=== PATIENT | female | born 1940 | race Caucasian/White ===

== ENCOUNTER 2024-01-04 09:30 | Emergency (ER) | payer MEDICARE ==
[~2024-01-04] VITALS: Ht 167.6 cm; Wt 87.0 kg
[2024-01-04 09:32] VITALS: TEMP 96.9
[2024-01-04] MEDS: albuterol 2.5 MG/3 ML nebule NEB ONE (10:34)
[2024-01-04 10:37] VITALS: PULSE 89; RESP 18; O2SAT 99
[2024-01-04] MEDS: azithromycin 250mg tablet PO ONE (10:38)
[2024-01-04] MEDS: predniSONE 20 mg tablet PO ONE (10:38)
[2024-01-04] MEDS ORDERED: PRED20TA PO (10:41)
[2024-01-04] MEDS ORDERED: AZIT-164 PO (10:41)
[2024-01-04 10:47] VITALS: PULSE 81; RESP 16; O2SAT 99
[2024-01-04 10:55] VITALS: BP 150/65; PULSE 93; RESP 16; O2SAT 98
== END 2024-01-04 10:56 | disposition home or self-care (01) ==
LOC: ER 09:30
DX: J22 Unspecified acute lower respiratory infection (principal); J44.89 Other specified chronic obstructive pulmonary disease
CPT/HCPCS: 94640; 99283; J7512; 94760

== ENCOUNTER 2025-01-22 13:37 | Inpatient (IN) | payer MEDICARE, OTHER ==
[~2025-01-22] VITALS: Ht 170.2 cm; Wt 88.5 kg
--- NOTE | 2025-01-22 14:01 | ELECTROCARDIOGRAPH REPORT ---
[facility] Test Date: 2025-01-22 Test Time: 14:00:04 Pat Name: BLUE GRUBBS Department: [facility] Patient ID: [facility]-[id number] Room: ORTHO [facility] Gender: F Curriculum Writer: : 1940 Requested By: ALINA MENA Order Number: [id number] Reading MD: Dr. SUMMER Miranda Measurements Intervals [place] Rate: 109 P: 53 IN: 194 QRS: 11 QRSD: 124 T: 55 QT: 344 QTc: 464 Interpretive Statements Sinus tachycardia Ventricular premature complex Right bundle branch block Electronically Signed On 01-23-2025 13:08:[address] SUMMER Miranda Please click the below link to view image of tracing.
--- NOTE | 2025-01-22 14:08 | RADIOLOGY REPORT ---
CLINICAL INFORMATION: Chest pain. TECHNIQUE: Single AP portable chest radiograph was obtained. COMPARISON: None FINDINGS: Lungs: Mild atelectasis in the lung bases. There is increased density in the right lung apex, may be due to scarring, although other etiologies, including consolidation not excluded. Cardiac: Heart size is within normal limits. Pulmonary vasculature: Unremarkable. Mediastinum/violette: Left internal jugular port catheter distal tip reaches the mid SVC. Bones: No acute osseous abnormality identified. Other: No other significant findings. IMPRESSION: Increased density in the right lung apex, may be due to scarring. Other etiologies, including consolidation not excluded. Correlate with clinical findings. If clinically indicated, CT could be obtained.
[2025-01-22 14:26] LABS: MEAN PLATELET VOLUME 8.8 FL (7.4-10.4); RED CELL DISTRIBUTION WIDTH 13.5 % (11.5-14.5)
[2025-01-22 15:01] LABS: CREATININE 0.76 MG/DL (0.40-0.90); PRO BRAIN NATRIURETIC PEPTIDE 35 PG/ML (0-450); TOTAL CARBON DIOXIDE 26.6 MMOL/L (24-32); eCRCL 56 ML/MIN; eGFR 73 ML/MIN
--- NOTE | 2025-01-22 17:02 | Physician Documentation ---
History of Present Illness ~ Chief Complaint: Shortness of Breath Stated Complaint: SOB ASTHMA COPD Time Seen by MD: 16:44 Primary Medical Doctor: RICARDO Mode of Arrival: POV HPI The patient is an 84-year-old female with a history of COPD, hypertension and hyperlipidemia. Her COPD has gotten worse over the past six days. Currently, she is not able to walk more than a few steps without gasping for air. She is not on home oxygen though she does use a CPAP machine at night with room air. She has been using inhalers and her nebulizer without benefit. Medication Reconciliation Allergies: Coded Allergies: No Known Allergies (Unverified , 01/22/25) Scheduled Budesonide/Glycopyr/Formoterol (Breztri Aerosphere Inhaler), 2 PUFFS INH Q12H, (Reported) Losartan Potassium (Losartan Potassium), 3 TAB PO HS, (Reported) Simvastatin* (Zocor*), 1 TAB PO HS, (Reported) Scheduled PRN Albuterol Sulfate Nebs* (Proventil Nebs*), 1 VIAL NEB Q6H PRN for SOB or wheezing, (Reported) Review of Systems ROS Constitutional: Denies chills, fatigue, fever, weight gain or weight loss. HEENT: Denies hearing loss, sinus pressure or visual changes. Respiratory: Cough, wheezing, shortness of breath Cardiovascular: Denies chest pain, pain while walking (claudication), edema or palpitations. Gastrointestinal: Denies abdominal pain, blood in stool, constipation, diarrhea, heartburn, loss of appetite, nausea or vomiting. Genitourinary: Denies painful urination (dysuria), excessive amount of urine (polyuria) or urinary frequency. Metabolic/Endocrine: Denies cold intolerance, heat intolerance, excessive thirst (polydipsia) or excessive hunger (polyphagia). Neurological: Denies dizziness, extremity numbness, extremity weakness, headaches, seizures or tremors. Psychiatric: Denies anxiety or depression. Integumentary: Denies breast discharge, breast lump, hives, mole change(s), rash or skin lesion. Musculoskeletal: Denies back pain, joint pain, joint swelling or neck pain. Hematologic: Denies easily bleeding, easily bruises, lymphedema or issues with blood clots. Immunologic: Denies food allergies or seasonal allergies. Physical Exam Vital Signs: Temperature: 97.6, Source: Oral, Heart Rate: 88, Respiratory Rate: 16, BP: 148/73, Pulse Oximetry: 94, Weight: 88.500 Oxygen Flow Rate: 0 Physical Exam Physical Exam Vitals and nursing note reviewed. Constitutional: General: Patient is awake, alert, oriented x 4 in no acute distress and well appearing. Speech is clear and lucid. Appearance: Normal appearance. Patient is not ill-appearing, toxic-appearing or diaphoretic. HENT: Head: Normocephalic and atraumatic. Mouth/Throat: Mouth: Mucous membranes are moist. Pharynx: Oropharynx is clear. Eyes: General: No scleral icterus. Extraocular Movements: Extraocular movements intact. Pupils: Pupils are equal, round, and reactive to light. Neck: Supple, no Kernig or Brudzinski sign. Cardiovascular: Rate and Rhythm: Normal rate and regular rhythm. Heart sounds: No murmur heard. Pulmonary: Effort: No respiratory distress. Breath sounds: Wheezing bilaterally. Abdominal: General: There is no distension. Palpations: There is no fluid wave, hepatomegaly or mass. Tenderness: There is no abdominal tenderness. There is no guarding. Musculoskeletal: General: No swelling or deformity. Skin: Coloration: Skin is not jaundiced. Findings: No erythema or rash. Neurological: Mental Status: Patient is alert. Progress Results/Orders Results/Orders Orders - ALINA EMNA MD Chest,Single View (01/22/25 13:48) Monitor (01/22/25 13:48) Saline Lock (01/22/25 13:48) Oxygen (01/22/25 13:48) Magnesium Sulf-Water 2g/50ml (Magnesium (01/22/25 17:00) Covid19 Binax Poc Result Entry (01/22/25 16:58) Page Hospitalist (01/22/25 17:08) Completed Orders - ALINA MENA MD Chest,Single View (01/22/25 13:48) Cbc/Diff (01/22/25 13:48) BMP (01/22/25 13:48) PBNP (01/22/25 13:48) Electrocardiogram (01/22/25 13:48) Hs Troponin I W Calculations (01/22/25 13:48) Hs Troponin I W Calculations (01/22/25 15:48) Ipratropium/Albuterol Nebule (Ipratrop/A (01/22/25 16:58) Methylprednisolone Sod Succ (Solumedrol (01/22/25 17:00) Doxycycline 100mg/Ns 100ml Pb (Vibramyci (01/22/25 16:58) Hgb A1c (01/22/25 14:17) Medications Received in ER Medications (Trade) Dose Ordered Sig/Sonny Route PRN Reason Start Time Stop Time Status Last Admin Dose Admin (ipratrop/ albuterol 0.5-3(2.5) MG/3ml nebule) 3 ml ONCE STAT NEB 01/22/25 16:58 01/22/25 17:04 DC 01/22/25 17:26 3 ML (SoluMEDROL 125mg inj) 125 mg ONCE ONCE IV 01/22/25 17:00 01/22/25 17:04 DC 01/22/25 17:29 125 MG Magnesium Sulfate 50 ml @ 25 mls/hr ONCE ONCE IV 01/22/25 17:00 01/22/25 18:59 01/22/25 17:26 25 MLS/HR Doxycycline Hyclate 100 ml @ 100 mls/hr ONCE STAT IV 01/22/25 16:58 01/22/25 17:57 DC 01/22/25 17:49 100 MLS/HR Vital Signs 01/22/25 01/22/25 01/22/25 01/22/25 13:44 14:27 14:50 14:58 Temp 97.6 Pulse 87 98 90 Resp 30 24 26 B/P (MAP) 152/81 141/73 (95) 146/76 (99) Pulse Ox 97 95 92 O2 Flow Rate 0 0 0 01/22/25 01/22/25 01/22/25 01/22/25 15:49 16:59 17:28 17:34 Pulse 88 91 97 92 Resp 16 20 20 B/P (MAP) 148/73 (98) 142/75 (97) Pulse Ox 94 94 94 100 O2 Delivery Room Air* Room Air* O2 Flow Rate 0 0 0 FiO2 21 21 Laboratory Tests Test 01/22/25 14:17 01/22/25 16:05 White Blood Count 7.4 Red Blood Count 3.95 L Hemoglobin 11.8 L Hematocrit 34.6 L Mean Corpuscular Volume 87.6 Mean Corpuscular Hemoglobin 29.8 Mean Corpuscular Hemoglobin Concent 34.0 Red Cell Distribution Width 13.5 Platelet Count 209 Mean Platelet Volume 8.8 Neutrophils (%) (Auto) 78.2 H Lymphocytes (%) (Auto) 7.7 L Monocytes (%) (Auto) 10.4 Eosinophils (%) (Auto) 3.5 Basophils (%) (Auto) 0.2 Neutrophils # (Auto) 5.8 Lymphocytes # (Auto) 0.6 L Monocytes # (Auto) 0.8 Eosinophils # (Auto) 0.3 Basophils # (Auto) 0.0 CBC Comment Sodium Level 139 Potassium Level 4.3 Chloride Level 103 Carbon Dioxide Level 26.6 Anion Gap 9 Blood Urea Nitrogen 18 Creatinine 0.76 Estimated GFR/1.73 m2 73 BUN/Creatinine Ratio 23.7 H Glucose Level 108 H Hemoglobin A1c 5.3 Calcium Level 9.7 Troponin I High Sensitivity 5 6 Pro-B-Type Natriuretic Peptide 35 Albumin 4.1 Chemistry Comments Troponin I High Sens Percent Delta 20 Troponin I Hi Sens Absolute Change 1 Medical Decision Making Additional information obtaine: family Findings Patient arrives with a six day progression of wheezing and shortness of breath with a history of COPD. Chest x-ray shows a hyperdense area in the right apex. She denies chills or fever. I am starting her on DuoNeb, steroids, magnesium and antibiotics. Heart Score: 4 Differential Dx:Considerations: Include: bronchitis, CHF, COPD, hyperventilation, panic attack, upper resp. infection; Unlikely: anxiety, asthma, cardiogenic shock, dysrhythmia, hypertension, accelerated, hypertension, essential, hypertension, malignant, hyponatremia, myocardial infarction, p neumonia, pneumonitis, pneumothorax, PSVT, pulmonary embolism, respiratory distress, respiratory failure, sinusitis, other Departure Disposition: ADMITTED INPATIENT Impression: Primary Impression: Acute exacerbation of chronic obstructive airways disease Condition: Fair Referrals: NO PRIMARY CARE PROVIDER (PCP) Signature Scribe Signature: . Attestation: ALINA TANG MD Jan 22, 2025 17:02
[2025-01-22] MEDS ORDERED: magnesium Cl slow-release 64mg tablet PO PRN (17:20)
[2025-01-22] MEDS ORDERED: albuterol 2.5 MG/3 ML nebule NEB PRN (17:20)
[2025-01-22] MEDS ORDERED: HYDROcodone/acetaminophen 5mg/325mg tablet PO PRN (17:20)
[2025-01-22] MEDS ORDERED: magnesium sulf-water 2g/50mL 50 ML IV PRN (17:20)
[2025-01-22] MEDS ORDERED: morphine 4 MG/ML inj SYRINge IV PRN ×2 (17:20)
[2025-01-22] MEDS ORDERED: ondansetron/PF 4mg/2ml inj IV PRN (17:20)
[2025-01-22] MEDS ORDERED: potassium Cl 20 mEq SR tablet PO PRN ×2 (17:20)
[2025-01-22] MEDS ORDERED: magnesium hydroxide 30ml (MOM) UD suspension PO PRN (17:20)
[2025-01-22] MEDS ORDERED: potassium Cl 40MEQ/1/2NS 520ml 520 ML IV PRN (17:20)
[2025-01-22] MEDS ORDERED: magnesium sulf-water 4G/100mL 100 ML IV PRN (17:20)
[2025-01-22] MEDS ORDERED: mag hydrox/Alum hydrox/simeth 30ml oral suspension PO PRN (17:20)
[2025-01-22] MEDS ORDERED: HYDROcodone/acetaminophen 10/325mg tab PO PRN (17:20)
[2025-01-22] MEDS: ipratropium/albuterol 3ml nebule NEB STA (17:26)
[2025-01-22] MEDS: magnesium sulf-water 2g/50mL 50 ML IV ONE (17:26)
[2025-01-22 17:28] VITALS: PULSE 97; RESP 20; O2SAT 94
[2025-01-22 17:34] VITALS: PULSE 92; RESP 20; O2SAT 100
[2025-01-22] MEDS: doxycycline 100mg/NS 100mL PB 100 ML IV STA (17:49)
--- NOTE | 2025-01-22 17:57 | HISTORY AND PHYSICAL-Residence ---
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 Patient reports that symptoms have been progressively worsening over the last three weeks, with worsening of her expectoration over the last 4-5 days. She has been using her inhaler Breztri twice a day, albuterol 3-4 times a day over the last one week along with the nebulizer 3 times a day. Despite the above, her symptoms have failed to improve. She complains of worsening shortness of breath even with a few steps, additionally complains of orthopnea and PND. Denies fevers, chills, nasal congestion or recent sick contacts. This is her 1st lifetime hospitalization, and 1st ER visit this year. She has had 2 ER visits last year. Follows Dr. Cooper for pulmonology, Dr. FERNÁNDEZ for PCP. 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 She received chemotherapy and radiotherapy to the lung as well as to the brain. She was diagnosed in August 2021 and completed all of the treatment with in six months. She used follow up every four months which has now been increased to every six months where she obtains a CT chest as well as a PET scan. Reports that she has not upcoming CT chest and PET scan next week. Patient also sleep apnea and does not use her CPAP regularly. She currently denies any loss of weight, loss of appetite or hematemesis. 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 Denies any other tobacco products. Occasional alcohol use. Denies any other illicit drug abuse Lives at home with the . Functionally independent ROS ROS As stated above in the HPI, otherwise all systems are reviewed and negative. Exam Vitals: Vital Signs Date Time Temp Pulse Resp B/P (MAP) Pulse Ox O2 Delivery O2 Flow Rate FiO2 01/22/25 17:45 103 17 155/99 (117) 94 01/22/25 17:34 Room Air* 0 21 01/22/25 13:44 97.6 General: General: Awake and Alert, no acute distress. HEENT: Conjunctiva pink, Sclera clear, Mucus Membranes moist. Resp: Tachypnea, diffuse expiratory wheezing in bilateral lung wilson Heart: Unable to auscultate due to diffuse wheezing Abdomen: Soft and non tender no organomegaly Extremities: No cyanosis,clubbing or edema. Skin: Warm and Dry. No rashes Diagnostic Data Last Recorded Lab Results: 01/22/25 1417 01/22/25 1417 Additional Plan Acute on chronic COPD exacerbation: Acute bronchitis EKG reveals P-mitrale and right bundle branch block Received one dose IV Solu-Medrol 125 mg followed by duo nebs x2. Received one dose IV doxycycline in the ER Duo nebs q.4 hours scheduled and albuterol q.2h PRN. Budesonide 0.5 mg b.i.d. Azithromycin daily for three days, Solu-Medrol 40 mg daily, Mucinex 600 mg b.i.d. In view of orthopnea and PND, one dose Lasix. ProBNP normal. Mildly increased pulmonary vascular congestion. Strict input and output monitoring Home medications include Breztri BID and albuterol PRN. 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 Status post chemotherapy and radiotherapy; in remission Follows with [facility] and Dr Cooper Next follow up for CT chest and PET scan in 10 days outpatient Hypertension: Has been on a stable dose and category of ARB for a long time Continue home medication of losartan 75 mg HS Hyperlipidemia: Follow lipid panel Continue home medication of rosuvastatin 20 mg daily Sleep apnea: Patient noncompliant with her CPAP Not a chronic CO2 retainer Advised to use overnight CPAP Continue monitoring Lines: PIV Code status: Full code DVT prophylaxis: Lovenox Diet: Heart healthy Discussed for 16-30 minutes regarding the code status of the patient and the patient would wish to be full code. Josef Galdamez PGY3, Internal medicine resident Patient was seen, examined and discussed with the attending MD, Dr. Coats Date of Service: Jan 22, 2025 Billing Provider: IVANA COATS MD Common Visit Codes: [id number] INP/OBS CARE (HIGH) Secondary Visit Codes: 18548-[id number] CARE PLAN 30 MINUTES JOSEF GALDAMEZ, RES Jan 22, 2025 17:57 IVANA COATS MD Jan 24, 2025 07:04
[2025-01-22] MEDS ORDERED: BUDE10.7 INH (18:00)
[2025-01-22] MEDS ORDERED: SIMV-42 PO (18:00)
[2025-01-22] MEDS ORDERED: ALB0.5UD NEB (18:00)
[2025-01-22] MEDS ORDERED: LOSA25TA41 PO (18:00)
[2025-01-22 18:25] LABS: INFLUENZA TYPE A ANTIGEN RAPID NEGATIVE (Negative); INFLUENZA TYPE B ANTIGEN RAPID NEGATIVE (Negative)
[2025-01-22] MEDS: ipratropium/albuterol 3ml nebule NEB SCH (19:47)
[2025-01-22 19:50] VITALS: PULSE 94; RESP 16; O2SAT 92
[2025-01-22 19:55] VITALS: PULSE 96; RESP 16
[2025-01-22] MEDS: guaiFENesin ER 600mg tablet PO SCH (21:28)
[2025-01-22] MEDS: K and/or MAG REPLACEMENT MC SCH (21:30)
[2025-01-22] MEDS: docusate sod 100mg capsule PO SCH (21:30)
[2025-01-22 22:00] VITALS: BP 148/75; PULSE 93; RESP 21; TEMP 97
[2025-01-23] VITALS (13 sets, daily range): BP systolic 124–155; BP diastolic 57–80; PULSE 87–98; RESP 14–20; TEMP 97.1–98.2; O2SAT 94–97
[2025-01-23 06:12] LABS: MEAN PLATELET VOLUME 9.8 FL (7.4-10.4); RED CELL DISTRIBUTION WIDTH 13.1 % (11.5-14.5)
[2025-01-23 06:26] LABS: CHOL/HDL RATIO 2.7 (0.00-4.99); CREATININE 0.84 MG/DL (0.40-0.90); LDL CHOLESTEROL 77 MG/DL (50-100); TOTAL CARBON DIOXIDE 27.3 MMOL/L (24-32); eCRCL 50 ML/MIN; eGFR 65 ML/MIN
[2025-01-23] MEDS: azithromycin/NS 500mg/250ml 250 ML IV SCH (07:58)
[2025-01-23] MEDS: methylPREDNISolone sod succ/PF 40mg inj. IV SCH (07:58)
[2025-01-23] MEDS: enoxaparin 40mg/0.4ml syringe SUBCUT SCH (08:01)
[2025-01-23] MEDS: budesonide 0.5mg/2ml UD nebule IH SCH (08:04)
--- NOTE | 2025-01-23 13:58 | CARDIOLOGY REPORT ---
APPROVED REPORT EXAM: Comprehensive 2D, Doppler, and color-flow Echocardiogram. Patient Location: [facility] Heart Rate: 91 bpm Rhythm: NSR Indications CONGESTIVE HEART FAILURE COPD HTN SOB STRATEGIC DEBRIEFING SPECIALIST: None PRIOR ECHOCARDIOGRAM: None. 2D Dimensions RVDd 3.2 cm IVSd 0.9 (0.7-1.1cm) LVDd 5.4 cm PWd 0.9 (0.7-1.1cm) IVSs 1.5 (0.8-1.2cm) LVDs 3.6 (2.5-4.0cm) PWs 1.3 (0.8-1.2cm) LVOT Diameter 1.96 (1.8-2.4cm) LVEF(%) 62.3 (>50%) FS (%) 33.9 % SV 88.4 ml CO 12.1 L/min M-Mode Dimensions Left Atrium(MM) 3.46 (2.5-4.0cm) Aortic Root 3.30 (2.2-3.7cm) Aortic Cusp Exc 1.57 (1.5-2.0cm) Aortic Valve AoV Peak Luis. 166.4 cm/s AoV VTI 27.2 cm AO Peak GR. 11.1 mmHg AO Mean GR. 5 mmHg LVOT VTI 28.75 cm LVOT Peak Luis. 167.8 cm/s JASON (VTI) 3.19 cm2 AV DI 1.06 % Mitral Valve MV E Velocity 114.0 cm/s MV Peak Gr. 8 mmHg MV PHT 36 ms MVA (PHT) 6.11 cm2 MV VMax 140.0 cm/s LEFT VENTRICLE Normal LV size and wall thickness. Overall systolic function is normal. Overall LVEF is 60-65%. RIGHT VENTRICLE RV is normal size and function. ATRIA The left atrium size is normal. The right atrium size is normal. AORTIC VALVE Trileaflet AV appears mildly sclerotic without stenosis. No insufficiency by color and spectral flow Doppler. MITRAL VALVE Mild mitral annular calcification without stenosis. Mild insufficiency. TRICUSPID VALVE TV appears structurally normal with no regurgitation by color and spectral flow Doppler. PULMONIC VALVE Pulmonic valve is not well visualized. GREAT VESSELS The aortic root is normal in size. The IVC is normal in size and collapses >50% with inspiration. PERICARDIUM Normal pericardium. No effusion. Other Information Study Quality: Adequate Conclusion Overall LVEF is 60-65%. Normal LV size and wall thickness. Overall systolic function is normal. RV is normal size and function. Trileaflet AV appears mildly sclerotic without stenosis. No insufficiency by color and spectral flow Doppler. Mild mitral annular calcification without stenosis. Mild insufficiency. TV appears structurally normal with no regurgitation by color and spectral flow Doppler. Normal pericardium. No effusion.
--- NOTE | 2025-01-23 16:45 | PROGRESS NOTE- Residence ---
Progress Note - Resident Providers to CC Resident Creating Document: CHELSEY DEVINE, OLGA LIDIA ~ Antibiotic Timeout Antibiotic Ordered?: No Subjective Patient was seen and examined at the bedside today. Reports she is feeling much better compared to yesterday. Family was at the bedside, reports that the patient was short of breadth on walking to bathroom. She uses CPAP at night. Objective Vital Signs Date Time Temp Pulse Resp B/P (MAP) Pulse Ox O2 Delivery O2 Flow Rate FiO2 01/23/25 11:59 90 18 Room Air 0.0 01/23/25 11:54 96 21 01/23/25 10:28 98.0 139/68 (91) Result Diagram: 01/23/2543001/23/25430 General: Awake and Alert, no acute distress. HEENT: Conjunctiva pink, Sclera clear, Mucus Membranes moist. Resp: Tachypnea, diffuse expiratory wheezing in bilateral lung wilson which improved Heart: Regular rate and rhythm, no murmur Abdomen: Soft and non tender no organomegaly, normal bowel sounds Extremities: No cyanosis,clubbing or edema. Neurological : No focal neurological deficit Skin: Warm and Dry. No rashes Plan Plan Acute on chronic COPD exacerbation: Acute bronchitis EKG reveals P-mitrale and right bundle branch block Received one dose IV Solu-Medrol 125 mg followed by duo nebs x2. Received one dose IV doxycycline in the ER Duo nebs q.4 hours scheduled and albuterol q.2h PRN. Budesonide 0.5 mg b.i.d. Azithromycin daily for three days, Solu-Medrol 40 mg daily, Mucinex 600 mg b.i.d. In view of orthopnea and PND, one dose Lasix. ProBNP normal. Mildly increased pulmonary vascular congestion. Strict input and output monitoring Home medications include Breztri BID and albuterol PRN. She has been on a stable medication for a long time until over the last three weeks with increasing requirement of albuterol Continue RT eval and treat 01/23/2025 Continuing IV Solu-Medrol 40 mg, home inhalers, DuoNebs p.r.n. 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 Status post chemotherapy and radiotherapy; in remission Follows with [facility] and Dr Cooper Next follow up for CT chest and PET scan in 10 days outpatient Hypertension: Has been on a stable dose and category of ARB for a long time Continue home medication of losartan 75 mg HS Hyperlipidemia: Follow lipid panel Continue home medication of rosuvastatin 20 mg daily Sleep apnea: Patient noncompliant with her CPAP Not a chronic CO2 retainer Advised to use overnight CPAP Continue monitoring Lines: PIV Code status: Full code DVT prophylaxis: Lovenox Diet: Heart healthy Disposition: Discharge tomorrow to home if patient continues to improve Chelsey Devine M.D PGY2 Date of Service: Jan 23, 2025 Billing Provider: IVANA COATS MD Common Visit Codes: [id number] INP/OBS CARE(HIGH) CHELSEY DEVINE, RES Jan 23, 2025 16:44 IVANA COATS MD Jan 24, 2025 07:05
[2025-01-23] MEDS ORDERED: GLYCOPYR INH SCH (20:00)
[2025-01-23] MEDS ORDERED: BUDESONIDE INH SCH (20:00)
[2025-01-23] MEDS ORDERED: FORMOTEROL INH SCH (20:00)
[2025-01-23] MEDS ORDERED: [UNRECOGNIZED DRUG - OTHER] INH SCH (20:00)
[2025-01-24] VITALS (17 sets, daily range): BP systolic 129–163; BP diastolic 63–78; PULSE 77–111; RESP 16–22; TEMP 96.3–97.4; O2SAT 91–100
[2025-01-24 05:41] LABS: MEAN PLATELET VOLUME 9.2 FL (7.4-10.4); RED CELL DISTRIBUTION WIDTH 13.7 % (11.5-14.5)
[2025-01-24 06:02] LABS: CREATININE 0.89 MG/DL (0.40-0.90); TOTAL CARBON DIOXIDE 30.1 MMOL/L (24-32); eCRCL 47 ML/MIN; eGFR 61 ML/MIN
[2025-01-24 06:06] LABS: EOSINOPHILS % (MANUAL) 2.0 % (0-6); LYMPHOCYTES % (MANUAL) 15.0 % (21-51); MONOCYTES % (MANUAL) 13.0 % (2-12); NEUTROPHILS % (MANUAL) 70.0 % (42-75)
[2025-01-24 06:07] LABS: PLATELET ESTIMATE NORMAL
[2025-01-24] MEDS: guaiFENesin ER 600mg tablet PO ONE (11:15)
--- NOTE | 2025-01-24 12:35 | RADIOLOGY REPORT ---
CTA Chest with intravenous contrast INDICATION: Worsening shortenss of breath COMPARISON: DI CHEST,SINGLE VIEW on DOS: 01/22/25 TECHNIQUE: Multidetector spiral CTA of the chest was performed of the chest with intravenous contrast. PULMONARY ANGIOGRAPHY PROTOCOL was utilized using a bolus- tracking technique centered on the main pulmonary artery. Axial, coronal and sagittal multiplanar and MIP reformats were performed. Radiation Dose : 1. Chest: CTDI volume is 22.58 mGy. Dose-length product is 862.65 mGy*cm The dose indicators for CT are the volume Computed Tomography (CT) Dose Index (CTDIvol) and the Dose Length Product (DLP), and are measured in units of mGy and mGy-cm, respectively. These indicators are not patient dose, but values generated from the CT scanner acquisition factors. The report includes radiation exposure data for exposures received during this examination. Contrast: 100 cc Omnipaque 350. Findings: Pulmonary artery: No pulmonary embolism Lower neck: Normal thyroid. Lungs: Central airways patent. Dense band of scarring with volume loss in the right upper lobe apex posteriorly abutting the major fissure. Airways appear occluded in this region. Background of mild diffuse bronchial wall thickening. Mild centrilobular emphysema. Heart/Vascular Structures: Normal heart size. No pericardial effusion. Lymph Nodes: No adenopathy Pleura: No pleural effusion or significant pneumothorax. Musculoskeletal: No acute osseous abnormality. Soft tissues: Normal. Upper abdomen: Limited portions of the upper abdomen are unremarkable. IMPRESSION: No pulmonary embolus. Band of presumed scarring within the right upper lobe apex. Suggest a short- term follow-up CT in 2-3 months for reassessment. Emphysema and chronic airways disease.
--- NOTE | 2025-01-24 15:50 | PROGRESS NOTE- Residence ---
Progress Note - Resident Providers to CC Resident Creating Document: JOSEF GALDAMEZ, OLGA LIDIA ~ Central Line/PICC still needed: No Chau-Non Protocol Chau Indications Met/Not Met: F/C Indications Not Met Antibiotic Timeout Antibiotic Ordered?: Yes Subjective Patient continues to have shortness of breath today, difficulty completing her statement without getting short of breath. Continues to have significant amount of expectoration. Denies any episodes of fevers or chills. Objective Vital Signs Date Time Temp Pulse Resp B/P (MAP) Pulse Ox O2 Delivery O2 Flow Rate FiO2 01/24/25 14:29 149/71 (97) 01/24/25 10:00 97.4 111 20 92 Room Air 01/24/25 08:06 0.0 01/24/25 07:53 21 Result Diagram: 01/24/25 0517 01/24/25516 General: Awake and Alert, short of breath HEENT: Conjunctiva pale, Sclera clear, Mucus Membranes moist. Resp: Right-sided wheezing greater than left-sided wheezing Heart: Regular Rate and rhythm, normal S1 and S2 without murmur, rub or gallop. Abdomen: Soft and non tender no organomegaly Extremities: No cyanosis,clubbing or edema. Skin: Warm and Dry. 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 She presents to the hospital with complaints of worsening shortness of breath over the last three weeks with increasing difficulty in ambulating. She is currently being managed for an acute on chronic COPD exacerbation for both emphysema and possible bronchitis. Plan Plan Acute on chronic COPD exacerbation: Acute bronchitis CTA chest reveals occluded right upper lobe airways with surrounding band of scarring, mild diffuse bronchial wall thickening and centrilobular mild emphysema Continue IV azithromycin for one more day until 01/25/2025 Duo nebs q.4 scheduled and q.2h albuterol PRN. CPAP at nighttime Increase IV Solu-Medrol dosage to 60 mg Q8h Due to worsening ongoing productive cough, increased Mucinex to 1200 mg b.i.d. Blood eosinophil count 300 cells/microL; continue ICS with budesonide /Continue Lasix 20 mg daily; strict input and output monitoring. 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 Status post chemotherapy and radiotherapy; in remission CTA chest reveals dense band of scarring in the right upper lobe with occluded airways; no new lesions noted Probable minimal improvement of acute COPD exacerbation likely secondary to the occluded airway Reached out to Dr Cooper to compare findings of the last CT Hypertension: Has been on a stable dose and category of ARB for a long time Continue home medication of losartan 75 mg HS Hyperlipidemia: Follow lipid panel Continue home medication of rosuvastatin 20 mg daily Sleep apnea: Patient noncompliant with her CPAP Not a chronic CO2 retainer Advised to continue using her overnight CPAP in the hospital as well Lines: PIV Code status: Full code DVT prophylaxis: Lovenox Diet: Heart healthy Josef Galdamez PGY3, Internal medicine resident Patient was seen, examined and discussed with the attending MD, Dr. Coats Date of Service: Jan 24, 2025 Billing Provider: IVANA COATS MD Common Visit Codes: [id number] INP/OBS CARE(HIGH) JOSEF GALDAMEZ, RES Jan 24, 2025 15:50 IVANA COATS MD Jan 25, 2025 07:59
[2025-01-24] MEDS: methylPREDNISolone sod succ/PF 40mg inj. IV SCH (16:25)
[2025-01-24] MEDS: guaiFENesin ER 600mg tablet PO SCH (19:35)
[2025-01-25] VITALS (7 sets, daily range): BP systolic 153; BP diastolic 75; PULSE 70–95; RESP 16–20; TEMP 97.7–97.8; O2SAT 92–95
[2025-01-25 04:47] LABS: MEAN PLATELET VOLUME 9.3 FL (7.4-10.4); RED CELL DISTRIBUTION WIDTH 13.2 % (11.5-14.5)
[2025-01-25 04:55] LABS: CREATININE 0.90 MG/DL (0.40-0.90); TOTAL CARBON DIOXIDE 28.6 MMOL/L (24-32); eCRCL 47 ML/MIN; eGFR 60 ML/MIN
[2025-01-25] MEDS ORDERED: GUAI600T45 PO (12:20)
[2025-01-25] MEDS ORDERED: FURO20TA4 PO (12:20)
[2025-01-25] MEDS ORDERED: AMOX-580 PO (12:20)
[2025-01-25] MEDS ORDERED: IPRA3AMP31 IH (12:20)
[2025-01-25] MEDS ORDERED: PRED10TA23 PO (12:20)
--- NOTE | 2025-01-25 15:47 | DISCHARGE SUMMARY-Residence ---
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, status post chemotherapy and radiotherapy Hypertension, hyperlipidemia, sleep apnea Operations\Procedures: None Consultants: None Complications: None Condition on DC: Stable for transfer New Medications: Amox Tr/Potassium Clavulanate 875/125 MG (Augmentin 875/125 MG) 875 Mg-125 Mg Tablet 1 TAB PO BID for 7 Days, #14 TAB Furosemide (Furosemide) 20 Mg Tablet 1 TAB PO DAILY for 7 Days, #7 TAB 0 Refills Ipratropium/Albuterol Sulfate (Duoneb 2.5-0.5 Mg/3 Ml Soln) 0.5 Mg-3 Mg (2.5 Mg Base)/3 Ml Ampul.neb 3 ML IH QID for 30 Days, #360 ML Use it as a scheduled dose four times a day for atleast the next 7 days or until you see improvement Prednisone (Prednisone) 10 Mg Tablet 0 PO DAILY, #42 TAB Take 4 tabs daily x4 days, then 3 daily x4 days 2 daily x4 days 1 daily x4 days 1/2 daily x4 days then STOP Guaifenesin (Mucinex) 600 Mg Tablet.sa 1200 MG PO Q12H for 7 Days, #14 TAB.SR Continued Medications: Albuterol Sulfate Nebs* (Proventil Nebs*) 2.5 Mg/0.5 Ml Vial.neb 1 VIAL NEB Q6H PRN for SOB or wheezing for 30 Days, #60 ML Budesonide/Glycopyr/Formoterol (Breztri Aerosphere Inhaler) 160 Mcg-9 Mcg-4.8 Mcg/Actuation Hfa.aer.ad 2 PUFFS INH Q12H for 30 Days, #10.7 GM 0 Refills Losartan Potassium (Losartan Potassium) 25 Mg Tablet 3 TAB PO HS for 30 Days, #30 TAB 0 Refills Simvastatin* (Zocor*) 20 Mg Tablet 1 TAB PO HS for 30 Days, #30 TAB Discharge Summary: This is a 84-year-old female patient with a past medical history of asthma, COPD, hypertension, hyperlipidemia and right upper lobe small-cell carcinoma of the lung diagnosed three years ago with metastasis to the brain and currently in remission. He presents to the hospital with complaints of shortness of breath over the last three weeks with increasing difficulty in completing sentences or ambulating. She was admitted the hospital for further management of her COPD exacerbation inclusive of both bronchitis and emphysema. Her peripheral blood eosinophil count was 300 cells per micro L. She was treated with IV steroids, duo nebs q.4 hours scheduled and q.2h albuterol PRN. Inhalation budesonide was also given twice a day. Mucinex was given for thickened expectoration. She was also managed with IV Zithromax for acute bronchitis. Her chest x-ray revealed increased pulmonary vascular congestion due to which Lasix 20 mg was given and the patient was monitored for strict input and output. As the patient had no significant improvement on day three of hospitalization, we performed a CTA chest to rule out alternative causes of a COPD exacerbation. On the CTA chest, there was evidence of right upper lobe scarring consistent with a prior CTs but additional findings of occluded airways in the upper lobe were also found. No new lesions were noted. No pulmonary embolism was also found. Hence, the dose of the steroids were increased to 60 mg q.8 hours. The following day, the patient had noticed significant improvement in her shortness of breath with ability to complete sentences and to ambulate. As the patient maintained hemodynamic stability and had improved, she was discharged back home with no services. Advised at discharge: Kindly follow up with the Dr. Cooper and PCP in 1-2 weeks. Repeat a CBC and CMP in 1-2 weeks. Use all the medications as indicated. We are sending you home on a nebulization which is not on albuterol which you can use 4 times a day until you noticed symptom improvement. Also sending you home on prescribed steroids that you taper as indicated. We are sending an additional antibiotic therapy of Augmentin that you can use for seven days. Kindly follow up with Dr. Cooper for continued steroid treatment. If your symptoms fail to improve or continue to worsen, kindly return back to the nearest ER. Physical exam at discharge: General: Awake and Alert, short of breath HEENT: Conjunctiva pale, Sclera clear, Mucus Membranes moist. Resp: Right-sided wheezing greater than left-sided wheezing Heart: Regular Rate and rhythm, normal S1 and S2 without murmur, rub or gallop. Abdomen: Soft and non tender no organomegaly Extremities: No cyanosis,clubbing or edema. Skin: Warm and Dry. No rashes Labs at discharge: WBC 5.8, RBC 4.1, hemoglobin 12.0, platelets 239 Sodium 138, potassium 4.1, chloride 100, bicarb 28.6, BUN 34, creatinine 0.9, blood glucose 147 Medications at discharge: Augmentin 875-125 mg b.i.d., Lasix 20 mg daily, Mucinex 1200 mg b.i.d., duo nebs nebulization, prednisone tapering dose Continue albuterol, respiratory, losartan 75 mg daily, simvastatin 20 mg HS *Problems/Diagnosis: (1) Acute exacerbation of chronic obstructive airways disease Status: Acute Total Time Spent on D/C: Up to 30 Minutes Date of Service: Jan 25, 2025 Billing Provider: IVANA COATS MD Common Visit Codes: 01362-STP/OBS DISCH DAY >30min JOHAN BECERRA, RES Jan 25, 2025 15:46 IVANA COATS MD Jan 26, 2025 06:50
== END 2025-01-25 13:03 | disposition home or self-care (01) | DRG 202 ==
LOC: ER 13:37 → ED HOLD 17:36 → ORTHO 4S 20:36
PROVIDERS: ADMIT Internal Medicine; ATTEND Internal Medicine
PROC: 5A09357 Assistance with Respiratory Ventilation, Less than 24 Consecutive Hours, Continuous Positive Airway Pressure (ICD-10-PCS; 2025-01-23)
PROC: B32T1ZZ Computerized Tomography (CT Scan) of Left Pulmonary Artery using Low Osmolar Contrast (ICD-10-PCS; principal; 2025-01-24)
PROC: B3201ZZ Computerized Tomography (CT Scan) of Thoracic Aorta using Low Osmolar Contrast (ICD-10-PCS; 2025-01-24)
PROC: B32S1ZZ Computerized Tomography (CT Scan) of Right Pulmonary Artery using Low Osmolar Contrast (ICD-10-PCS; 2025-01-24)
PROC: 5A09357 Assistance with Respiratory Ventilation, Less than 24 Consecutive Hours, Continuous Positive Airway Pressure (ICD-10-PCS; 2025-01-24)
DX: J20.9 Acute bronchitis, unspecified (principal); C34.91 Malignant neoplasm of unspecified part of right bronchus or lung; C79.31 Secondary malignant neoplasm of brain; J44.1 Chronic obstructive pulmonary disease with (acute) exacerbation; I10 Essential (primary) hypertension; Z20.822 Contact with and (suspected) exposure to COVID-19; E78.5 Hyperlipidemia, unspecified; Z79.899 Other long term (current) drug therapy; Z92.21 Personal history of antineoplastic chemotherapy; Z92.3 Personal history of irradiation
CPT/HCPCS: 36415; 71045; 71275; 80048; 80061; 83036; 83735; 83880; 84484; 85007; 85025; 87081; 87804; 87811; 93005; 93306; 94640; 94760; 99285; A6258; G0378; J0456; J1271; J1650; J1938; J2919; J7030; Q9967